=== PATIENT | female | born 1970 | race Two or more races ===

== ENCOUNTER 2022-11-17 23:02 | Inpatient (IN) | payer MEDICAID, OTHER ==
[~2022-11-17] VITALS: Ht 149.9 cm; Wt 60.1 kg
[2022-11-17] MEDS ORDERED: MECLIZINE HCL 25 MG TAB PO ONE (23:30)
[2022-11-17 23:52] LABS: Basophils # (auto) 0 10 ^3/uL (0-0.2); Basophils % (auto) 0.6 % (0.0-2.0); Eosinophils # (auto) 0.1 10 ^3/uL (0-0.8); Hemoglobin 13.3 g/dL (12.2-16.2); Lymphocytes # (auto) 1.6 10 ^3/uL (0.4-5.4); Lymphocytes % (auto) 27.7 % (10.0-50.0); Mean Corpuscular Hemoglobin 30.2 pg (28.0-32.0); Mean Corpuscular Hgb Conc. 34.2 g/dL (32.0-36.0); Mean Corpuscular Volume 88.3 fL (80.0-100.0); Monocytes # (auto) 0.4 10 ^3/uL (0-1.3); Monocytes % (auto) 6.4 % (0.0-12.0); Neutrophils # (auto) 3.7 10 ^3/uL (1.6-8.6); Neutrophils % (auto) 64.3 % (37.0-80.0); Nucleated Red Blood Cells % 0.1 %; Red Blood Cells 4.42 10^6/uL (4.0-5.20); Red Cell Distribution Width 13.9 % (11.8-14.3); White Blood Cell 5.7 10^3/uL (4.4-10.8)
[2022-11-18 00:03] LABS: Urine Bacteria NONE SEEN /hpf (None Seen); Urine Blood Negative /uL (Negative); Urine Specific Gravity 1.004 (1.001-1.035); Urine WBC <1 /hpf (0 - 5)
[2022-11-18 00:16] LABS: Albumin 3.7 g/dL (3.4-5.0); BUN/Creatinine Ratio 19.7 (10.0-20.0); Calcium 8.4 mg/dL (8.5-10.1); Magnesium 2.1 mg/dL (1.6-2.6); Potassium 3.5 mmol/L (3.5-5.1)
[2022-11-18 00:19] LABS: Bilirubin, Total 0.6 mg/dL (0.2-1.0); Total Protein 7.1 g/dL (6.4-8.2)
[2022-11-18] MEDS ORDERED: DOCUSATE SOD 100 MG CAP PO PRN (02:30)
[2022-11-18] MEDS ORDERED: ACETAMINOPHEN 325 MG TAB PO PRN (02:30)
[2022-11-18] MEDS ORDERED: ONDANSETRON HCL 4 MG/2 ML VIAL IV PRN (02:30)
[2022-11-18] MEDS ORDERED: HYDROcodone-ACET 5/325MG TAB PO PRN (02:30)
[2022-11-18] MEDS ORDERED: MECLIZINE HCL 25 MG TAB PO PRN (02:30)
[2022-11-18] MEDS: SODIUM CHLORIDE 0.9% 1,000 ML IV SCH ×2 (02:44→19:10)
[2022-11-18] MEDS ORDERED: SERTRALINE HCL 50 MG TAB PO ONE (02:45)
[2022-11-18] MEDS ORDERED: NITROGLYCERIN 0.4 MG SL TAB SL PRN (03:00)
[2022-11-18] MEDS ORDERED: MORPHINE SULFATE INJ 2 MG/ml SYRG IV PRN (03:00)
[2022-11-18] MEDS ORDERED: IOHEXOL 350 MG/ML 100ML IJ ONE (04:24)
[2022-11-18 04:58] VITALS: BP 145/85
[2022-11-18] MEDS ORDERED: LEVO25TA6 PO (05:37)
[2022-11-18] MEDS ORDERED: PRAZ2CAP2 PO (05:39)
[2022-11-18] MEDS ORDERED: ZOLP10TA PO (05:39)
[2022-11-18] MEDS ORDERED: SERT100T PO (05:41)
[2022-11-18] MEDS ORDERED: ATOR20TA50 PO (05:41)
[2022-11-18] MEDS: LEVOTHYROXINE SODIUM 25 MCG TAB PO SCH (06:18)
[2022-11-18 06:29] LABS: Basophils # (auto) 0 10 ^3/uL (0-0.2); Basophils % (auto) 0.5 % (0.0-2.0); Eosinophils # (auto) 0.1 10 ^3/uL (0-0.8); Hematocrit 38.7 % (36.0-46.0); Lymphocytes # (auto) 1.3 10 ^3/uL (0.4-5.4); Lymphocytes % (auto) 23.9 % (10.0-50.0); Mean Corpuscular Hgb Conc. 33.5 g/dL (32.0-36.0); Mean Corpuscular Volume 89.6 fL (80.0-100.0); Monocytes # (auto) 0.3 10 ^3/uL (0-1.3); Monocytes % (auto) 5.3 % (0.0-12.0); Neutrophils # (auto) 3.7 10 ^3/uL (1.6-8.6); Neutrophils % (auto) 69.3 % (37.0-80.0); Nucleated Red Blood Cells % 0.1 %; Red Blood Cells 4.32 10^6/uL (4.0-5.20); Red Cell Distribution Width 13.8 % (11.8-14.3); White Blood Cell 5.4 10^3/uL (4.4-10.8)
[2022-11-18 06:36] LABS: Albumin 3.2 g/dL (3.4-5.0); Calcium 8.4 mg/dL (8.5-10.1); Potassium 3.5 mmol/L (3.5-5.1)
[2022-11-18 06:40] LABS: BUN/Creatinine Ratio 18.3 (10.0-20.0); Bilirubin, Total 0.6 mg/dL (0.2-1.0); Total Protein 6.5 g/dL (6.4-8.2)
[2022-11-18 08:00] VITALS: BP 117/72
[2022-11-18] MEDS: FAMOTIDINE (10MG/ML) 2ML VL IV SCH ×2 (10:00→21:16)
[2022-11-18 12:00] VITALS: BP 125/72
[2022-11-18 16:00] VITALS: BP 111/70
[2022-11-18 20:00] VITALS: BP 106/57
[2022-11-18 22:00] VITALS: BP 106/57
[2022-11-18] MEDS ORDERED: ATORVASTATIN 20 MG TAB PO SCH (22:00)
[2022-11-19 05:00] VITALS: BP 122/64
[2022-11-19 05:23] LABS: Basophils # (auto) 0.1 10 ^3/uL (0-0.2); Eosinophils # (auto) 0.1 10 ^3/uL (0-0.8); Eosinophils % (auto) 1.6 % (0.0-7.0); Hematocrit 38.6 % (36.0-46.0); Hemoglobin 12.8 g/dL (12.2-16.2); Lymphocytes # (auto) 1.8 10 ^3/uL (0.4-5.4); Lymphocytes % (auto) 30.9 % (10.0-50.0); Mean Corpuscular Hemoglobin 29.9 pg (28.0-32.0); Mean Corpuscular Hgb Conc. 33.1 g/dL (32.0-36.0); Mean Corpuscular Volume 90.2 fL (80.0-100.0); Monocytes # (auto) 0.4 10 ^3/uL (0-1.3); Neutrophils # (auto) 3.4 10 ^3/uL (1.6-8.6); Neutrophils % (auto) 59.5 % (37.0-80.0); Nucleated Red Blood Cells % 0.1 %; Red Blood Cells 4.28 10^6/uL (4.0-5.20); Red Cell Distribution Width 13.9 % (11.8-14.3); White Blood Cell 5.8 10^3/uL (4.4-10.8)
[2022-11-19 05:45] LABS: Potassium 4.2 mmol/L (3.5-5.1)
[2022-11-19 05:52] LABS: Albumin 2.9 g/dL (3.4-5.0); BUN/Creatinine Ratio 17.2 (10.0-20.0); Calcium 7.8 mg/dL (8.5-10.1)
[2022-11-19 06:01] LABS: Bilirubin, Total 0.3 mg/dL (0.2-1.0)
[2022-11-19] MEDS: LEVOTHYROXINE SODIUM 25 MCG TAB PO SCH (06:03)
[2022-11-19 08:00] VITALS: BP 139/90
[2022-11-19] MEDS ORDERED: MECL25CH85 PO (08:30)
[2022-11-19 09:22] VITALS: BP 139/90
[2022-11-19 10:51] VITALS: BP 139/90
== END 2022-11-19 12:35 | disposition home or self-care (01) | DRG 111 ==
LOC: EEVIPCON 23:02 → ER 23:15 → TELE 11-18 02:59 → TELE-CENTR 11-18 04:30
PROVIDERS: ADMIT Nurse Practitioner Family; ATTEND Family Medicine
DX: R42 Dizziness and giddiness (principal); E03.9 Hypothyroidism, unspecified; E78.00 Pure hypercholesterolemia, unspecified; R26.81 Unsteadiness on feet
CPT/HCPCS: 36415; 70450; 70496; 71045; 80053; 81001; 83735; 83880; 84443; 84484; 85025; 93005; 93886; G0378; J3490

== ENCOUNTER 2023-03-12 21:59 | Emergency (ER) | payer MEDICAID ==
[~2023-03-12] VITALS: Ht 149.9 cm; Wt 57.2 kg
[~2023-03-12 21:59] MED LIST: ATOR20TA50 PO; LEVO25TA6 PO; MECL25CH85 PO; PRAZ2CAP2 PO; SERT100T PO; ZOLP10TA PO
[2023-03-12 22:00] VITALS: BP 107/64; PULSE 90; RESP 18; TEMP 98.6
[2023-03-13] MEDS ORDERED: CYCL-614 PO ×3 (00:09→00:18)
[2023-03-13] MEDS ORDERED: ACET500T58 PO (00:09)
[2023-03-13 00:14] VITALS: O2SAT 97
[2023-03-13] MEDS ORDERED: KETOROLAC TROMETH 60MG/2ML VIAL IM ONE (00:15)
== END 2023-03-13 01:29 | disposition home or self-care (01) ==
LOC: ER 21:59
DX: S46.911A Strain of unspecified muscle, fascia and tendon at shoulder and upper arm level, right arm, initial encounter (principal); E78.5 Hyperlipidemia, unspecified; E03.9 Hypothyroidism, unspecified; Z79.899 Other long term (current) drug therapy; W10.9XXA Fall (on) (from) unspecified stairs and steps, initial encounter; Y93.89 Activity, other specified; Y92.89 Other specified places as the place of occurrence of the external cause; Y99.8 Other external cause status
CPT/HCPCS: 73030; 96372; 99283; J1885